=== PATIENT | male | born 1970 | race Caucasian/White ===

== ENCOUNTER 2018-11-09 23:17 | Emergency (ER) | payer SELFPAY ==
[2018-11-09] MEDS ORDERED: NORMAL SALINE 1000 ML 1,000 ML IV ONE ×2 (23:29→23:38)
--- NOTE | 2018-11-09 23:33 | ER Document Report ---
ED General - General Chief Complaint: Nausea/Vomiting Stated Complaint: NAUSEA/VOMITING Time Seen by Provider: 11/09/18 23:20 Primary Care Provider: [facility] [Provider Group] - Follow up as needed TRAVEL OUTSIDE OF THE [place] IN LAST 30 DAYS: No - HPI Notes: Patient is a 48-year-old male that presents to the emergency department for chief complaint of nausea and vomiting. 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 He states he was drinking 9 or 10 bottles of Gatorade but was sweating profusely all day. He states around 3 PM he started to get nauseated and has had 3 episodes of emesis since 5 PM. He reports decreased urination and dark urine as well. Patient also complaining of cramping in his extremities. He denies his tory of heat related issues or rhabdomyolysis in the past. Patient denies any chronic kidney disease. He does have Parkinson's which he is on medication for. He states he usually has a mild slur to his speech from the Parkinson's and denies any changes with his speaking. He denies headache, vision changes, numbness and weakness. Patient received Zofran and fluids by EMS and reports his nausea has improved. Past Medical History: Parkinson Past Surgical History: Negative Social History: Denies drugs alcohol and tobacco Family History: Reviewed and noncontributory for presenting illness Allergies: Reviewed, see documented allergy list. REVIEW OF SYSTEMS: CONSTITUTIONAL : No fever No chills diaphoresis No recent illness EENT: No vision changes No congestion No sore throat CARDIOVASCULAR: No chest pain No palpitations RESPIRATORY: No shortness of breath No cough No difficulty breathing GASTROINTESTINAL: No abdominal pain nausea vomiting No diarrhea GENITOURINARY: No dysuria No hematuria difficulty urinating MUSCULOSKELETAL: No back pain leg pain arm pain SKIN: No rashes No lesions LYMPHATIC: No swollen, enlarged glands. NEUROLOGICAL: No lightheadedness No headache No weakness No paresthesias PSYCHIATRIC: No anxiety No depression PHYSICAL EXAMINATION: Vital signs reviewed, nursing noted reviewed. GENERAL: Mildly diaphoretic, well-nourished and in no acute distress. HEAD: Atraumatic, normocephalic. EYES: Eyes appear normal, extraocular movements intact, sclera anicteric, conjunctiva are normal. ENT: nares patent, oropharynx clear without exudates. Dry mucous membranes. NECK: Normal range of motion, supple without lymphadenopathy LUNGS: Breath sounds clear to auscultation bilaterally and equal. No wheezes rales or rhonchi. HEART: Regular rate and rhythm without murmurs ABDOMEN: Soft, nontender, normoactive bowel sounds. No rebound, guarding, or rigidity. No masses appreciated. EXTREMITIES: Nontender, good range of motion, no pitting or edema. NEUROLOGICAL: No focal neurological deficits. Moves all extremities spontaneously Motor and sensory grossly intact on exam. PSYCH: Normal mood, normal affect. SKIN: Warm, mildly diaphoretic, normal turgor, no rashes or lesions noted on exposed skin - Related Data Allergies/Adverse Reactions: No Known Allergies Allergy (Verified 11/09/18 23:26) Past Medical History - Social History Smoking Status: Never Smoker Family History: Reviewed & Not Pertinent Physical Exam - Vital signs Vitals: Temp Pulse Resp BP Pulse Ox 98.3 F 76 18 132/88 H 97 11/09/18 23:25 11/09/18 23:25 11/09/18 23:25 11/09/18 23:25 11/09/18 23:25 Course - Re-evaluation Re-evalutation: 11/09/18 23:32 Vitals reviewed. Nursing notes reviewed. Patient is mildly diaphoretic and likely experiencing heat exhaustion and dehydration. He has no focal neurologic deficits to suggest acute stroke. 11/10/18 01:31 Patient reevaluated and appears much better. He is no longer diaphoretic. Vital signs have remained stable. He has not had any emesis since he arrived to the emergency room. Patient's lab work showed hyponatremia and acute kidney injury consistent with his presenting picture. Patient received 500 mL bolus of lactated Ringer prior to arrival and 2 L of normal saline in the emergency room. His repeat BMP after this amount of fluids shows improvement of his renal function and sodium. He did receive another 500 mL bolus of normal saline. Patient is now urinating normally. He was provided a copy of his lab work and instructed to have his renal function rechecked in the next few days. Patient will avoid any further heat exposure or strenuous work for the next few days and was also counseled on hydration. He will return to the emergency room for new or worsening symptoms. He is stable for discharge. Laboratory 11/09/18 11/09/18 11/10/18 23:50 23:50 00:40 WBC 11.4 H RBC 5.72 H Hgb 16.9 Hct 50.4 MCV 88 MCH 29.6 MCHC 33.6 RDW 13.6 Plt Count 239 Seg Neutrophils % 79.0 H Lymphocytes % 13.1 Monocytes % 6.8 Eosinophils % 0.5 Basophils % 0.6 Absolute Neutrophils 9.0 H Absolute Lymphocytes 1.5 Absolute Monocytes 0.8 Absolute Eosinophils 0.1 Absolute Basophils 0.1 Sodium 134.7 L 136.2 L Potassium 4.4 4.6 Chloride 96 L 104 Carbon Dioxide 25 23 Anion Gap 14 9 BUN 29 H 27 H Creatinine 1.83 H 1.58 H Est GFR ( Amer) 48 L 57 L Est GFR (Non-Af Amer) 40 L 47 L Glucose 187 H 132 H Calcium 10.1 9.0 Total Bilirubin 1.0 Direct Bilirubin 0.2 Neonat Total Bilirubin Not Reportable Neonat Direct Bilirubin Not Reportable Neonat Indirect Bili Not Reportable AST 23 ALT 16 Alkaline Phosphatase 95 Creatine Kinase 142 Total Protein 7.8 Albumin 4.9 Urine Color Urine Appearance Urine pH Ur Specific [place] Urine Protein Urine Glucose (UA) Urine Ketones Urine Blood Urine Nitrite Urine Bilirubin Urine Urobilinogen Ur Leukocyte Esterase Urine WBC (Auto) Urine RBC (Auto) U Hyaline Cast (Auto) Squamous Epi Cells Auto Urine Mucus (Auto) Urine Ascorbic Acid 11/10/18 00:40 WBC RBC Hgb Hct MCV MCH MCHC RDW Plt Count Seg Neutrophils % Lymphocytes % Monocytes % Eosinophils % Basophils % Absolute Neutrophils Absolute Lymphocytes Absolute Monocytes Absolute Eosinophils Absolute Basophils Sodium Potassium Chloride Carbon Dioxide Anion Gap BUN Creatinine Est GFR ( Amer) Est GFR (Non-Af Amer) Glucose Calcium Total Bilirubin Direct Bilirubin Neonat Total Bilirubin Neonat Direct Bilirubin Neonat Indirect Bili AST ALT Alkaline Phosphatase Creatine Kinase Total Protein Albumin Urine Color YELLOW Urine Appearance SLIGHTLY-CLOUDY Urine pH 5.0 Ur Specific [place] 1.024 Urine Protein 30 H Urine Glucose (UA) NEGATIVE Urine Ketones TRACE H Urine Blood NEGATIVE Urine Nitrite NEGATIVE Urine Bilirubin NEGATIVE Urine Urobilinogen 2.0 H Ur Leukocyte Esterase NEGATIVE Urine WBC (Auto) 6 Urine RBC (Auto) 5 U Hyaline Cast (Auto) 19 Squamous Epi Cells Auto <1 Urine Mucus (Auto) MOD Urine Ascorbic Acid 20 H - Vital Signs Vital signs: Temp Pulse Resp BP Pulse Ox 98.3 F 76 18 132/88 H 97 08/20/19 23:25 11/09/18 23:25 11/09/18 23:25 11/09/18 23:25 11/09/18 23:25 - Laboratory Result Diagrams: 11/09/18 23:50 11/10/18 00:40 Laboratory results interpreted by me: 11/09/18 11/09/18 11/10/18 23:50 23:50 00:40 WBC 11.4 H RBC 5.72 H Seg Neutrophils % 79.0 H Absolute Neutrophils 9.0 H Sodium 134.7 L 136.2 L Chloride 96 L BUN 29 H 27 H Creatinine 1.83 H 1.58 H Est GFR ( Amer) 48 L 57 L Est GFR (Non-Af Amer) 40 L 47 L Glucose 187 H 132 H Urine Protein Urine Ketones Urine Urobilinogen Urine Ascorbic Acid 11/10/18 00:40 WBC RBC Seg Neutrophils % Absolute Neutrophils Sodium Chloride BUN Creatinine Est GFR ( Amer) Est GFR (Non-Af Amer) Glucose Urine Protein 30 H Urine Ketones TRACE H Urine Urobilinogen 2.0 H Urine Ascorbic Acid 20 H Discharge - Discharge Clinical Impression: MAY (acute kidney injury), Dehydration, Hyponatremia Heat exhaustion Qualifiers: Encounter type: initial encounter Qualified Code(s): T67.5XXA - Heat exhaustion, unspecified, initial encounter Nausea and vomiting Qualifiers: Vomiting type: unspecified Vomiting Intractability: non-intractable Qualified Code(s): R11.2 - Nausea with vomiting, unspecified Condition: Stable Disposition: HOME, SELF-CARE Instructions: Dehydration ([facility]), Heat Exhaustion ([facility]), Kidney Injury ([facility]) Additional Instructions: Please return to the emergency department if you have any worsening, or concern of your symptoms. Please return to the emergency department if you develop chest pain, difficulty breathing, severe abdominal pain, or ongoing vomiting. Please follow-up with your primary care physician in 2-3 days and any other recommended physicians. If prescribed, take all medications as directed. If you have any questions or concerns do not hesitate to return the emergency department for evaluation. Have your kidney function rechecked by your primary care doctor in the next 1 to 2 days Avoid any exposure to heat and continue to drink water to stay well-hydrated. Referrals: [facility] [Provider Group] - Follow up as needed
[2018-11-09 23:59] LABS: ABSOLUTE BASOPHILS # (AUTO) 0.1 10^3/uL (0.0-0.2); ABSOLUTE EOSINOPHILS # (AUTO) 0.1 10^3/uL (0.0-0.6); ABSOLUTE LYMPHOCYTES (AUTO) 1.5 10^3/uL (0.5-4.7); ABSOLUTE MONOCYTES (AUTO) 0.8 10^3/uL (0.1-1.4); BASOPHILS % (AUTO) 0.6 % (0-2); EOSINOPHILS % (AUTO) 0.5 % (0-6); HEMATOCRIT 50.4 % (37.9-51.0); HEMOGLOBIN 16.9 g/dL (13.5-17.0); LYMPHOCYTES % (AUTO) 13.1 % (13-45); MEAN CORPUSCULAR HEMOGLOBIN 29.6 pg (27.0-33.4); MEAN CORPUSCULAR HGB CONC 33.6 g/dL (32.0-36.0); MEAN CORPUSCULAR VOLUME 88 fl (80-97); MONOCYTES % (AUTO) 6.8 % (3-13); PLATELET COUNT 239 10^3/uL (150-450); RED BLOOD COUNT 5.72 10^6/uL (4.35-5.55); RED CELL DISTRIBUTION WIDTH 13.6 % (11.5-14.0); TOTAL CELLS COUNTED % (AUTO) 100 %; WHITE BLOOD COUNT 11.4 10^3/uL (4.0-10.5)
[2018-11-10 00:15] LABS: ALBUMIN 4.9 g/dL (3.5-5.0); ALKALINE PHOSPHATASE 95 U/L (38-126); ANION GAP 14 (5-19); ASPARTATE AMINO TRANSFERASE 23 U/L (17-59); BILIRUBIN,DIRECT 0.2 mg/dL (0.0-0.4); BLOOD UREA NITROGEN 29 mg/dL (7-20); CALCIUM 10.1 mg/dL (8.4-10.2); CARBON DIOXIDE 25 mmol/L (22-30); CHLORIDE 96 mmol/L (98-107); CREATINE KINASE 142 U/L (55-170); GLUCOSE 187 mg/dL (75-110); POTASSIUM 4.4 mmol/L (3.6-5.0); TOTAL PROTEIN 7.8 g/dL (6.3-8.2)
[2018-11-10] MEDS ORDERED: NORMAL SALINE 500 ML IV ONE (00:36)
[2018-11-10 01:12] LABS: APPEARANCE,URINE SLIGHTLY-CLOUDY; BILIRUBIN,URINE NEGATIVE (NEGATIVE); COLOR,URINE YELLOW; GLUCOSE, URINE NEGATIVE (NEGATIVE); KETONES,URINE TRACE mg/dL (NEGATIVE); LEUKOCYTE ESTERASE,URINE NEGATIVE (NEGATIVE); NITRITE,URINE NEGATIVE (NEGATIVE); PROTEIN,URINE 30 mg/dL (NEGATIVE); URINE SPECIFIC GRAVITY 1.024
[2018-11-10 01:22] LABS: ANION GAP 9 (5-19); BLOOD UREA NITROGEN 27 mg/dL (7-20); CARBON DIOXIDE 23 mmol/L (22-30); CHLORIDE 104 mmol/L (98-107); GLUCOSE 132 mg/dL (75-110); POTASSIUM 4.6 mmol/L (3.6-5.0)
[2018-11-10 02:05] VITALS: BP 141/88
== END 2018-11-10 02:06 | disposition home or self-care (01) ==
LOC: ER 23:17
DX: T67.5XXA Heat exhaustion, unspecified, initial encounter (principal); X30.XXXA Exposure to excessive natural heat, initial encounter; Y93.89 Activity, other specified; Y99.0 Civilian activity done for income or pay; R11.2 Nausea with vomiting, unspecified; E87.1 Hypo-osmolality and hyponatremia; E86.0 Dehydration; N17.9 Acute kidney failure, unspecified; R61 Generalized hyperhidrosis; M79.606 Pain in leg, unspecified; M79.603 Pain in arm, unspecified; G20 Parkinson's disease; Z79.899 Other long term (current) drug therapy
CPT/HCPCS: 36415; 82550; 85025; 80048; 80053; 81001; J7030; J7040; 96360; 96361; 99284